=== PATIENT | male | born 1940 | race Caucasian/White ===

== ENCOUNTER → 2016-11-19 | Outpatient (CLI) | payer MEDICARE ==
[~2016-11-19] MED LIST: ALLE10TA5 PO; ALPH200C3 PO; ATOR20TA42 PO; B-COTAB41 PO; BENI20TA25 PO; CLOP75 PO; COQ10 PO; FLAX10008 PO; GLIP5 PO; LEVO50TA4 PO; METF-324 PO; SAWPOW PO; SITA100 PO; TOPR25TA2 PO; VITA-13 PO; VITA500C PO
[2016-11-19 12:43] LABS: BLOOD, URINE NEG (NEG); COMMENT (UR) CULT NOT INDICATED; CULTURE IF INDICATED CULT NOT INDICATED; GLUCOSE,URINE NEG (NEG); KETONE, URINE TRACE mg/dL (NEG); MUCUS URINE FEW /lpf (OCC); NITRITE,URINE NEG (NEG); PH, URINE 5.5 (5.0-8.5); SQUAMOUS EPITHELIAL CELL URINE 1 /hpf (0-5); URINE COLOR YELLOW (YELLW/STRAW)
[2016-11-19 12:58] LABS: MICRO ALBUMIN RANDOM URINE RAW 10.6 MG/L (0.0-30.0)
[2016-11-19 13:06] LABS: ALKALINE PHOSPHATASE 59 U/L (45-117); ALT (GPT) 20 U/L (12-78); ANION GAP 4 MEQ/L (5-15); AST (GOT) 12 U/L (15-37); BICARBONATE 30.9 MEQ/L (21.0-32.0); BLOOD UREA NITROGEN 30 MG/DL (7-18); CHLORIDE 106 MEQ/L (98-107); GLOMERULAR FILTRATION RATE 52 ML/MIN (>89); GLUCOSE,FASTING 181 MG/DL (74-99); LDL CHOLESTEROL 48 MG/DL (0-99); POTASSIUM 5.2 MEQ/L (3.5-5.1); SODIUM (NA) 141 MEQ/L (136-145); TOTAL BILIRUBIN ADULT 1.1 MG/DL (0.2-1.0)
[2016-11-19 14:09] LABS: HEMOGLOBIN A1a 1.2 %; HEMOGLOBIN Ao 80.9 %; HEMOGLOBIN F 1.3 %; HEMOGLOBIN LA1C 2.5 %; HEMOGLOBIN P3 4.2 %
== END ==
LOC: PLAB 10:32
PROVIDERS: ATTEND Family Medicine
DX: Z12.5 Encounter for screening for malignant neoplasm of prostate (principal); E78.5 Hyperlipidemia, unspecified; E11.9 Type 2 diabetes mellitus without complications; I10 Essential (primary) hypertension; N39.0 Urinary tract infection, site not specified
CPT/HCPCS: 36415; 80053; 80061; 81001; 82043; 83036; G0103

== ENCOUNTER → 2017-02-28 | Outpatient (CLI) | payer MEDICARE ==
[2017-02-28 12:35] LABS: ANION GAP 7 MEQ/L (5-15); AST (GOT) 10 U/L (15-37); BICARBONATE 26.7 MEQ/L (21.0-32.0); BLOOD UREA NITROGEN 30 MG/DL (7-18); CHLORIDE 105 MEQ/L (98-107); GLOMERULAR FILTRATION RATE 53 ML/MIN (>89); GLUCOSE,FASTING 219 MG/DL (74-99); POTASSIUM 4.2 MEQ/L (3.5-5.1); SODIUM (NA) 139 MEQ/L (136-145)
[2017-02-28 12:47] LABS: ALKALINE PHOSPHATASE 55 U/L (45-117); ALT (GPT) 16 U/L (12-78); HDL CHOLESTEROL 51.2 MG/DL (40.0-60.0); LDL CHOLESTEROL 66 MG/DL (0-99); LDL CHOLESTEROL DIRECT 81 MG/DL (0-99); TOTAL BILIRUBIN ADULT 0.7 MG/DL (0.2-1.0)
[2017-02-28 15:04] LABS: HEMOGLOBIN A1a 1.5 %; HEMOGLOBIN Ao 80.4 %; HEMOGLOBIN F 1.4 %; HEMOGLOBIN LA1C 2.9 %; HEMOGLOBIN P3 4.4 %
== END ==
LOC: PLAB 09:36
PROVIDERS: ATTEND Family Medicine
DX: E03.9 Hypothyroidism, unspecified (principal); E11.319 Type 2 diabetes mellitus with unspecified diabetic retinopathy without macular edema; I10 Essential (primary) hypertension; E78.5 Hyperlipidemia, unspecified
CPT/HCPCS: 36415; 80053; 80061; 83036; 83721; 84443

== ENCOUNTER → 2017-03-11 | Outpatient (CLI) | payer MEDICARE ==
[2017-03-11 13:37] LABS: BLOOD, URINE NEG (NEG); GLUCOSE,URINE TRACE mg/dL (NEG); KETONE, URINE NEG (NEG); MUCUS URINE FEW /lpf (OCC); NITRITE,URINE NEG (NEG); PH, URINE 5.5 (5.0-8.5); SQUAMOUS EPITHELIAL CELL URINE <1 /hpf (0-5); URINE COLOR YELLOW (YELLW/STRAW)
[2017-03-11 13:51] LABS: MICRO ALBUMIN RANDOM URINE RAW 9.5 MG/L (0.0-30.0)
== END ==
LOC: PLAB 11:21
PROVIDERS: ATTEND Family Medicine
DX: I12.9 Hypertensive chronic kidney disease with stage 1 through stage 4 chronic kidney disease, or unspecified chronic kidney disease (principal); N18.3 Chronic kidney disease, stage 3 (moderate); E11.319 Type 2 diabetes mellitus with unspecified diabetic retinopathy without macular edema; E11.22 Type 2 diabetes mellitus with diabetic chronic kidney disease; E03.9 Hypothyroidism, unspecified
CPT/HCPCS: 36415; 81001; 82043; 82306; 83970

== ENCOUNTER → 2017-06-07 | Outpatient (CLI) | payer MEDICARE ==
[2017-06-07 10:15] LABS: ANION GAP 5 MEQ/L (5-15); AST (GOT) 7 U/L (15-37); BICARBONATE 29.9 MEQ/L (21.0-32.0); BLOOD UREA NITROGEN 26 MG/DL (7-18); CHLORIDE 102 MEQ/L (98-107); GLOMERULAR FILTRATION RATE 64 ML/MIN (>89); GLUCOSE,FASTING 154 MG/DL (74-99); POTASSIUM 3.9 MEQ/L (3.5-5.1); SODIUM (NA) 137 MEQ/L (136-145)
[2017-06-07 10:23] LABS: ALKALINE PHOSPHATASE 63 U/L (45-117); ALT (GPT) 16 U/L (12-78); INDIRECT BILIRUBIN 0.3 MG/DL (0.0-0.8); LDL CHOLESTEROL 59 MG/DL (0-99); TOTAL BILIRUBIN ADULT 0.5 MG/DL (0.2-1.0)
[2017-06-07 13:32] LABS: MICRO ALBUMIN RANDOM URINE RAW 8.2 MG/L (0.0-30.0)
[2017-06-07 16:45] LABS: HEMOGLOBIN A1a 1.1 %; HEMOGLOBIN Ao 82.2 %; HEMOGLOBIN F 1.3 %; HEMOGLOBIN LA1C 2.5 %; HEMOGLOBIN P3 5.7 %
== END ==
LOC: PLAB 07:21
DX: E11.9 Type 2 diabetes mellitus without complications (principal); E78.5 Hyperlipidemia, unspecified; Z79.899 Other long term (current) drug therapy
CPT/HCPCS: 36415; 80048; 80061; 80076; 82043; 83036

== ENCOUNTER → 2017-10-06 | Outpatient (CLI) | payer MEDICARE ==
[2017-10-06 10:26] LABS: ALBUMIN 3.9 GM/DL (3.4-5.0); AST (GOT) 13 U/L (15-37); BICARBONATE 31.9 MEQ/L (21.0-32.0); BLOOD UREA NITROGEN 25 MG/DL (7-18); CALCIUM 9.4 MG/DL (8.5-10.1); CHLORIDE 106 MEQ/L (98-107); CREATININE 1.28 MG/DL (0.60-1.30); GLOMERULAR FILTRATION RATE 55 ML/MIN (>89); GLUCOSE,RANDOM 145 MG/DL (74-106); SODIUM (NA) 142 MEQ/L (136-145)
[2017-10-06 10:27] LABS: CHOLESTEROL 136 MG/DL (120-200)
[2017-10-06 10:31] LABS: ALKALINE PHOSPHATASE 61 U/L (45-117); ALT (GPT) 21 U/L (12-78); CHOLESTEROL/ HDL RATIO 3.15 RATIO; DIRECT BILIRUBIN ADULT 0.2 MG/DL (0.0-0.2); HDL CHOLESTEROL 43.1 MG/DL (40.0-60.0); INDIRECT BILIRUBIN 0.5 MG/DL (0.0-0.8); LDL CHOLESTEROL 69 MG/DL (0-99); TOTAL BILIRUBIN ADULT 0.7 MG/DL (0.2-1.0); TOTAL PROTEIN 7.4 GM/DL (6.4-8.2); TRIGLYCERIDES 119 MG/DL (42-150)
[2017-10-06 17:02] LABS: HEMOGLOBIN A1C 7.2 % (4.3-6.0)
== END ==
LOC: PLAB 07:11
DX: E11.9 Type 2 diabetes mellitus without complications (principal); E78.5 Hyperlipidemia, unspecified; Z79.899 Other long term (current) drug therapy
CPT/HCPCS: 36415; 80048; 80061; 80076; 83036

== ENCOUNTER → 2017-12-12 | Outpatient (CLI) | payer MEDICARE ==
[2017-12-12 10:40] LABS: BASOPHIL % 0.9 % (0.0-2.0); EOSINOPHIL # 0.2 TH/MM3 (0-0.4); EOSINOPHIL % 3.9 % (0.0-4.0); HEMATOCRIT 34.8 % (39.0-51.0); HEMOGLOBIN 12.1 GM/DL (13.0-17.0); LYMPH % 24.7 % (9.0-44.0); LYMPHOCYTE # 1.2 TH/MM3 (1.0-4.8); MEAN CELL VOLUME 95.5 FL (80.0-100.0); MEAN CORPUSCULAR HEMOGLOBIN 33.1 PG (27.0-34.0); MEAN CORPUSCULAR HGB CONC 34.7 % (32.0-36.0); MEAN PLATELET VOLUME 8.6 FL (7.0-11.0); MONO % 8.9 % (0.0-8.0); MONOCYTE # 0.4 TH/MM3 (0-0.9); NEUT % 61.6 % (16.0-70.0); PLATELET COUNT 138 TH/MM3 (150-450); RED BLOOD COUNT 3.64 MIL/MM3 (4.50-5.90); RED CELL DISTRIBUTION WIDTH 12.6 % (11.6-17.2); WHITE BLOOD COUNT 4.8 TH/MM3 (4.0-11.0)
[2017-12-12 11:01] LABS: ALBUMIN 3.9 GM/DL (3.4-5.0); AST (GOT) 12 U/L (15-37); BICARBONATE 27.2 MEQ/L (21.0-32.0); BLOOD UREA NITROGEN 21 MG/DL (7-18); CALCIUM 8.7 MG/DL (8.5-10.1); CHLORIDE 106 MEQ/L (98-107); CHOLESTEROL 107 MG/DL (120-200); CREATININE 1.29 MG/DL (0.60-1.30); GLOMERULAR FILTRATION RATE 54 ML/MIN (>89); GLUCOSE,FASTING 169 MG/DL (74-99); SODIUM (NA) 139 MEQ/L (136-145)
[2017-12-12 11:02] LABS: TRIGLYCERIDES 85 MG/DL (42-150)
[2017-12-12 11:13] LABS: ALKALINE PHOSPHATASE 57 U/L (45-117); ALT (GPT) 20 U/L (12-78); CHOLESTEROL/ HDL RATIO 2.61 RATIO; DIRECT BILIRUBIN ADULT 0.2 MG/DL (0.0-0.2); HDL CHOLESTEROL 40.9 MG/DL (40.0-60.0); LDL CHOLESTEROL 49 MG/DL (0-99); LDL CHOLESTEROL DIRECT 67 MG/DL (0-99); TOTAL BILIRUBIN ADULT 0.8 MG/DL (0.2-1.0); TOTAL PROTEIN 7.3 GM/DL (6.4-8.2)
[2017-12-12 14:43] LABS: AMORPHOUS SEDIMENT, URINE RARE; BILIRUBIN, URINE NEG (NEG); BLOOD, URINE NEG (NEG); GLUCOSE,URINE NEG (NEG); KETONE, URINE TRACE mg/dL (NEG); MUCUS URINE FEW /lpf (OCC); NITRITE,URINE NEG (NEG); SQUAMOUS EPITHELIAL CELL URINE 1 /hpf (0-5); URINE COLOR YELLOW (YELLW/STRAW); URINE LEUKOCYTE ESTERASE TRACE (NEG)
[2017-12-12 15:41] LABS: HEMOGLOBIN A1C 6.6 % (4.3-6.0)
== END ==
LOC: PLAB 07:25
DX: E78.5 Hyperlipidemia, unspecified (principal); E03.9 Hypothyroidism, unspecified; E11.9 Type 2 diabetes mellitus without complications; I10 Essential (primary) hypertension; Z79.899 Other long term (current) drug therapy; Z51.81 Encounter for therapeutic drug level monitoring
CPT/HCPCS: 36415; 80053; 80061; 81001; 82248; 83036; 83721; 84443; 85025

== ENCOUNTER → 2018-01-27 | Outpatient (CLI) | payer MEDICARE ==
[2018-01-27 11:03] LABS: ALBUMIN 3.7 GM/DL (3.4-5.0); ALT (GPT) 18 U/L (12-78); AST (GOT) 16 U/L (15-37); BICARBONATE 27.5 MEQ/L (21.0-32.0); BLOOD UREA NITROGEN 17 MG/DL (7-18); CALCIUM 8.7 MG/DL (8.5-10.1); CHLORIDE 107 MEQ/L (98-107); CHOLESTEROL 106 MG/DL (120-200); CREATININE 1.23 MG/DL (0.60-1.30); DIRECT BILIRUBIN ADULT 0.1 MG/DL (0.0-0.2); GLOMERULAR FILTRATION RATE 57 ML/MIN (>89); GLUCOSE,FASTING 132 MG/DL (74-99); SODIUM (NA) 143 MEQ/L (136-145)
[2018-01-27 11:05] LABS: ALKALINE PHOSPHATASE 64 U/L (45-117); HDL CHOLESTEROL 33.1 MG/DL (40.0-60.0); INDIRECT BILIRUBIN 0.4 MG/DL (0.0-0.8); LDL CHOLESTEROL 31 MG/DL (0-99); TOTAL BILIRUBIN ADULT 0.5 MG/DL (0.2-1.0); TOTAL PROTEIN 7.4 GM/DL (6.4-8.2); TRIGLYCERIDES 211 MG/DL (42-150)
[2018-01-27 13:57] LABS: BACTERIA, URINE OCC /hpf; BILIRUBIN, URINE NEG (NEG); BLOOD, URINE NEG (NEG); GLUCOSE,URINE NEG (NEG); KETONE, URINE TRACE mg/dL (NEG); NITRITE,URINE NEG (NEG); PH, URINE 5.5 (5.0-8.5); URINE COLOR YELLOW (YELLW/STRAW); URINE LEUKOCYTE ESTERASE MOD (NEG)
[2018-01-27 14:58] LABS: HEMOGLOBIN A1C 6.5 % (4.3-6.0)
== END ==
LOC: PLAB 06:39
DX: E11.9 Type 2 diabetes mellitus without complications (principal); E78.5 Hyperlipidemia, unspecified; I12.9 Hypertensive chronic kidney disease with stage 1 through stage 4 chronic kidney disease, or unspecified chronic kidney disease; N18.3 Chronic kidney disease, stage 3 (moderate); Z79.899 Other long term (current) drug therapy
CPT/HCPCS: 36415; 80048; 80061; 80076; 81001; 82043; 83036